=== PATIENT | female | born 1995 | race Two or more races ===

== ENCOUNTER 2018-08-08 12:38 | Emergency (ER) | payer OTHER ==
[~2018-08-08] VITALS: Ht 152.4 cm; Wt 59.0 kg
== END 2018-08-08 23:20 | disposition home or self-care (01) ==
LOC: ER 12:38
DX: R31.0 Gross hematuria (principal); D64.9 Anemia, unspecified

== ENCOUNTER 2023-08-07 19:40 | Emergency (ER) | payer OTHER ==
[~2023-08-07] VITALS: Ht 152.4 cm; Wt 65.3 kg
[2023-08-07] MEDS ORDERED: ORPHENADRINE CITRATE 30 MG/ML AMPUL IM ONE (20:45)
[2023-08-07] MEDS ORDERED: KETOROLAC TROMETHAMINE 60 MG VIAL IM ONE (20:45)
[2023-08-07] MEDS ORDERED: NORFLEX100MG PO (22:08)
[2023-08-07] MEDS ORDERED: DICLOFENAC SODI50 MG PO (22:08)
== END 2023-08-07 22:22 | disposition home or self-care (01) ==
LOC: ER 19:40
DX: M54.50 Low back pain, unspecified (principal)

== ENCOUNTER 2023-08-09 19:45 | Inpatient (IN) | payer OTHER ==
[~2023-08-09] VITALS: Ht 152.4 cm; Wt 61.2 kg
[~2023-08-09 19:45] MED LIST: DICLOFENAC SODI50 MG PO; NORFLEX100MG PO
--- NOTE | 2023-08-09 20:12 | NUR ---
PACIENTE ALERTA Y ORIENTADA X3 REFIERE TENER DOLOR EN LA PARTE LUMBAR Y TAMBIEN DOLOR EN EL AREA PELVICO, PACIENTE VERBALIZA QUE ESTA EN ROCHA PERIODO MENSTRUAL Y EL DOLOR ES DE MANERA MISTI. PACIENTE VERBALIZA QUE VISITO NUESTRAS PERDOMO DE EMERGENCIAS EL LUNES PASADO Y FUE AALIYAH DE MALI CON TRATAMIENTO A SEGUIR. PACIENTE VERBALIZA QUE A LAS 5PM TUVO X1 VOMITO Y SE SIENTE CON MAREOS Y DEBILIDAD GENERAL.
[2023-08-10] MEDS ORDERED: KETOROLAC TROMETHAMINE 60 MG VIAL IM STA (01:27)
--- NOTE | 2023-08-10 01:39 | NUR ---
PACIENTE EVALUADA POR . SE ORIENTA SOBRE TX MEDICO, REFIERE ENTENDER. SE REALIZAN MUESTRAS DE LABORATORIO BAJO MEDIDAS ASEPTICAS. SE ADMINISTRA MEDICAMENTO LASHONDA ORDEN MEDICA. SE COORDINA SONOGRAMA. PTE MANEJADA POR . PENDIENTE RE-EVALUACION MEDICA.
[2023-08-10 02:05] LABS: MEAN CORPUSCULAR HGB CONC 28.2 g/dl (32.0-36.0); PLATELET COUNT 363 K/uL (150-450); RED BLOOD COUNT 2.82 M/uL (4.00-6.00); RED CELL DISTRIBUTION WIDTH 20.5 % (11.5-14.5)
[2023-08-10 02:07] LABS: MEAN CORPUSCULAR HEMOGLOBIN 16.6 pg (27.00-32.0)
[2023-08-10 02:09] LABS: HEMATOCRIT 16.7 % (36.0-45.00); HEMOGLOBIN 4.7 g/dL (12.0-15.00); MEAN CELL VOLUME 59.2 fL (80.00-100.00)
[2023-08-10 02:22] LABS: INR 1.05; PARTIAL THROMBOPLASTIN TIME 20.5 SECONDS (22.0-34.0)
[2023-08-10 02:26] LABS: ALBUMIN 3.8 gm/dL (3.4-5.0); ALKALINE PHOSPHATASE 76 U/L (50-136); ALT/SGPT 13 U/L (12-78); ANION GAP 4 (10.0-20.0); AST/SGOT 11 U/L (15-37); BLOOD UREA NITROGEN 9 mg/dL (7-18); BUN CREA RATIO 18 (7.0-25.0); CALCIUM 8.7 mg/dL (8.5-10.1); CARBON DIOXIDE 28 mEq/L (21-32); CHLORIDE 109 mmol/L (98-107); CREATININE SERUM 0.51 mg/dL (0.55-1.02); GFR 144.65; GLOBULINA 3.3 G/DL (2.4-3.5); GLUCOSE FASTING 86 mg/dL (65-100); OSMOLALITY SERUM 272 MOSM/KG (275-295); POTASSIUM 3.65 mEq/L (3.5-5.1); SODIUM 137 mmol/L (136-145); TOTAL PROTEIN 7.1 gm/dL (6.4-8.2)
[2023-08-10 02:27] LABS: HCG QUANTITATIVE < 1 mUI/mL (1-3)
[2023-08-10] MEDS ORDERED: 0.9 % SODIUM CHLORIDE 1,000 ML IV ONE (02:30)
[2023-08-10 02:37] LABS: PH,URINE 5.5 (5.0-8.0); URINE APPEARANCE Turbid; URINE BILIRRUBIN Small (NEGATIVE); URINE BLOOD Large; URINE COLOR Orange; URINE GLUCOSE Negative (NEGATIVE); URINE LEUKOCYTE Negative; URINE NITRATE Negative; URINE PROTEIN 30 (NEGATIVE)
[2023-08-10 02:41] LABS: URINE BACTERIA 185.2 uL (0.0-1933); URINE EPITHELIAL CELLS 23.1 uL (0.0-38.8); URINE RBC 3129.2 uL (0.0-20.8); URINE WBC 60.1 uL (0.0-23.2)
[2023-08-10 02:42] LABS: MEAN CORPUSCULAR HGB CONC 28.2 g/dl (32.0-36.0); PLATELET COUNT 375 K/uL (150-450); RED BLOOD COUNT 2.98 M/uL (4.00-6.00); RED CELL DISTRIBUTION WIDTH 20.9 % (11.5-14.5)
[2023-08-10 02:43] LABS: MEAN CELL VOLUME 58.4 fL (80.00-100.00); MEAN CORPUSCULAR HEMOGLOBIN 16.4 pg (27.00-32.0)
[2023-08-10 02:44] LABS: HEMATOCRIT 17.4 % (36.0-45.00); HEMOGLOBIN 4.9 g/dL (12.0-15.00)
--- NOTE | 2023-08-10 02:45 | NUR ---
SE REALIZA REQUISION PARA DIANNE UNIDADES DE PRBC, SE COLECTAN MUESTRAS BAJO MEDIDAS ASEPTICAS. SE LLENA DOCUMENTO DE REQUISION Y SE LLEVAN AL LABORATORIO. REALIZA LLAMA A BANCO DE [facility] EL CUAL INDICA QUE SE TOME MUESTRA DE TIPO Y MICHELA. SE ORIENTA A PACIENTE SOBRE PROCESO DE TRANSFUSION DE SHAWN, REFIERE ENTENDER. SE PROVEE CONSENTIMIENTO PARA TRANSFUSION, PACIENTE Y MEDICO FIRMAN CONSENTIMIENTO, SE ANEJA AL EXPEDIENTE MEDICO. 0305AM- SE COLECTA MUESTRA PARA TIPO Y MICHELA BAJO MEDIDAS ASEPTICAS. SE LLENA REQUISION Y SE LLEVA MUESTRA Y DOCUMENTO AL LABORATORIO. SE ENTREGA A
[2023-08-10 03:23] LABS: URINE CRYSTALS MANY /HPF; URINE MUCUS MODERATE
--- NOTE | 2023-08-10 07:08 | NUR ---
SE RECIBE PTE ALERTA ORIENTADA X3 EN MOIZ.VENOPUNCION PATENTE JYOTI DE EDEMA Y ERITEMA RECIBIENDO 0.9 NSS BAJANDO 150ML/HR.PENDIENTE SONOGRAMA,3 UNIDADES DE PRBC YA REQUIZADAS Y CONSULTA CON DR.MARCUS MCKEON.
[2023-08-10] MEDS ORDERED: ESTROGENS, CONJUGATED 25 MG VIAL IV ONE (10:30)
[2023-08-10] MEDS ORDERED: RINGERS SOLUTION,LACTATED 1,000 ML IV SCH (14:45)
[2023-08-11] MEDS ORDERED: ESTROGENS, CONJUGATED 25 MG VIAL IV SCH (09:00)
[2023-08-11 11:53] LABS: HEMATOCRIT 31.7 % (36.0-45.00); MEAN CORPUSCULAR HGB CONC 30.9 g/dl (32.0-36.0); PLATELET COUNT 310 K/uL (150-450); RED BLOOD COUNT 4.53 M/uL (4.00-6.00)
[2023-08-11 11:54] LABS: HEMOGLOBIN 9.8 g/dL (12.0-15.00); MEAN CELL VOLUME 69.9 fL (80.00-100.00); MEAN CORPUSCULAR HEMOGLOBIN 21.6 pg (27.00-32.0); RED CELL DISTRIBUTION WIDTH 26.6 % (11.5-14.5)
[2023-08-12] MEDS ORDERED: FF) NORGESTREL-ETHINYL ESTRADIOL TAB PO SCH (17:45)
== END 2023-08-13 09:59 | disposition home or self-care (01) | DRG 812 ==
LOC: ER 19:46 → SEC-K 08-10 16:48 → OB/GYN 08-10 16:48
PROVIDERS: General Practice; ADMIT Student in an Organized Health Care Education/Training Program; ATTEND Student in an Organized Health Care Education/Training Program
PROC: BW4GZZZ Ultrasonography of Pelvic Region (ICD-10-PCS; principal; 2023-08-10)
PROC: 30233N1 Transfusion of Nonautologous Red Blood Cells into Peripheral Vein, Percutaneous Approach (ICD-10-PCS; 2023-08-10)
DX: D64.9 Anemia, unspecified (principal); N93.9 Abnormal uterine and vaginal bleeding, unspecified; Z20.822 Contact with and (suspected) exposure to COVID-19